=== PATIENT | female | born 1980 | race Caucasian/White ===

== ENCOUNTER 2018-11-13 09:19 | Outpatient (CLI) | payer MEDICARE, OTHER ==
--- NOTE | 2018-11-16 12:54 | CONSULTATION REPORT ---
HISTORY: This patient was seen today and evaluated for complaints of cervical and lumbar spine pain and right leg numbness and pain. Previous treatment has consisted of lumbar and cervical epidural steroid injections and apparently RFA in her cervical spine which she says caused more problems than it helped. She states besides her weight today of over 300 pounds, she has lost over 100 pounds in the past year or so. Hopefully, this process will continue, but she states that she has reached a plateau and this bariatric clinic referral is being initiated. PHYSICAL EXAMINATION: She has grossly normal motor and sensory in her upper and lower extremities. MRI: Review of MRI scan of the cervical and lumbar spine, both performed in November, yields foraminal stenosis of significance at L4-5 on the right. This could account for her right leg symptoms. Otherwise, all the intervertebral disc spaces are very healthy, well-maintained and without significant degeneration. The cervical spine had two bulging discs at C5-6 and C6-7, but again there is adequate spinal reserve capacity and neural foramina are not compromised. IMPRESSION: 1. Mild degenerative disc disease, cervical spine, C5-6 and C6-7. 2. Normal intervertebral disc spaces, lumbar spine. 3. Foraminal stenosis, right side L4-5. PLAN: LFD right side L4-5 with foraminotomy, right side only, in an effort to resolve the stenosis of the right neural foramen at the L4-5 level. Bariatric clinic referral also is being accomplished. [place]
== END 2018-11-13 09:20 ==
LOC: ORHTO 09:19
PROVIDERS: ATTEND Orthopaedic Surgery
DX: M50.322 Other cervical disc degeneration at C5-C6 level (principal); M12.88 Other specific arthropathies, not elsewhere classified, other specified site
CPT/HCPCS: 99213